=== PATIENT | female | born 1960 | race Two or more races ===

== ENCOUNTER 2018-08-11 09:21 | Outpatient (CLI) | payer OTHER ==
[~2018-08-11 09:21] MED LIST: PEPCID40 MG PO
== END 2018-08-11 09:32 | disposition home or self-care (01) ==
LOC: SONOGRAMA 09:21 → MAMO-SONO 10:15
DX: E03.8 Other specified hypothyroidism (principal)

== ENCOUNTER → 2018-09-08 | Outpatient (CLI) | payer OTHER | END | disposition home or self-care (01) | LOC: RAD 10:58 | DX: R00.2 Palpitations (principal); E03.8 Other specified hypothyroidism ==